=== PATIENT | male | born 1970 | race Caucasian/White ===

== ENCOUNTER 2016-11-16 11:40 | Observation (INO) | payer BC ==
--- NOTE | 2016-11-16 12:10 | DR.H&P ---
H&P - History & Physical for Day of: H&P Date: 11/16/16 - Chief Complaint Chief Complaint: Chest pain, RUQ abd pain - History of Present Illness History of Present Illness: The patient is a 46 year old male who is a patient of my practice who has been being treated for RUQ abdominal pain in the outpatient setting. The patient did have a GB US which showed some thickening of the GB wall. The patient was being set up for a HIDA scan in the outpatient setting. However, the patient began to experience worsening RUQ pain and chest pain today. Subsequently, the patient will be admitted to [facility] for further evaluation and managment. - Past Medical History Past Medical History: GERD, Hypertension - Past Surgical History Surgical History: Ortho Surgery (BACK SURGERY 2012) - Family History Family Medical History: Diabetes Mellitus, Hypertension - Social History Does patient currently use any type of tobacco product: No Have you used tobacco products in the last 12 months: No Type of Tobacco Use: None Does any household member use tobacco: No Alcohol Use: None Drug Use: None - Review of Systems Constitutional: No Symptoms Reported Eyes: No Symptoms Reported ENT: No Symptoms Reported Respiratory: No Symptoms Reported Cardiovascular: Chest Pain, See HPI Gastrointestinal: See HPI, Abdominal Pain Genitourinary: No Symptoms Reported Musculoskeletal: No Symptoms Reported Skin: No Symptoms Reported Neurological: No Symptoms Reported Oriented: Normal Eyes: Normal Ear: Normal Nose: Normal Throat: Normal Respiratory: Clear Throughout Cardiovascular: Normal : Normal Auscultation: Bowel Sounds: Normal Palpation: Other (TTP RUQ) Tenderness: RUQ, Epigastric, Moderate Skin: Normal Musculoskeletal: Normal Psychiatric: Normal Mood Description: Calm Affect: Normal Speech Pattern: Appropriate - Assessment/Plan (1) Chest pain Qualifiers: Chest pain type: C Ischemic chest pain type: I Narrative Support Text: see HPI Status: Acute Plan: CXR. SERIAL EKG. SERICAL CARDIAC ENZYMES (2) RUQ abdominal pain Status: Acute Plan: HIDA SCAN IN AM. PROTONIX 40 IV Q12
[2016-11-16 14:19] LABS: BASOPHILS # (AUTO) 0.1 X10^3/uL (0.0-0.1); BASOPHILS % (AUTO) 0.6 % (0.2-1.0); EOSINOPHILS # (AUTO) 0.1 x10^3/uL (0.0-0.2); EOSINOPHILS % (AUTO) 0.6 % (0.9-2.9); HEMATOCRIT 46.4 % (42.0-54.0); HEMOGLOBIN 16.2 g/dL (13.5-18.0); LYMPHOCYTES # (AUTO) 1.2 X10^3/uL (1.3-2.9); LYMPHOCYTES % (AUTO) 12.6 % (21.0-51.0); MEAN CORPUSCULAR HEMOGLOBIN 28.3 pg (27.0-34.0); MEAN CORPUSCULAR HGB CONC 34.9 g/dL (33.0-35.0); MEAN PLATELET VOLUME 8.6 fL (7.4-11.0); MONOCYTES # (AUTO) 0.4 x10^3/uL (0.3-0.8); MONOCYTES % (AUTO) 4.1 % (0.0-13.0); NEUTROPHILS # (AUTO) 7.9 x10^3/uL (2.2-4.8); NEUTROPHILS % (AUTO) 82.1 % (42.0-75.0); PLATELET COUNT 279 X10^3/uL (150.0-450.0); RED BLOOD COUNT 5.73 X10^6/uL (4.7-6.0); RED CELL DISTRIBUTION WIDTH 13.3 % (11.6-16.5); WHITE BLOOD COUNT 9.6 X10^3/uL (3.6-10.0)
[2016-11-16] MEDS: PROTONIX INJ 40 MG VIAL IVP SCH ×2 (14:39→21:09)
[2016-11-16] MEDS: NS 1000 ML 1,000 ML IV SCH (14:39)
[2016-11-16 14:42] LABS: ALANINE AMINOTRANSFERASE 58 Units/L (12-78); ALBUMIN 3.8 g/dL (3.4-5.0); ALKALINE PHOSPHATASE 80 Units/L (46-116); ASPARTATE AMINO TRANSFERASE 36 Units/L (15-37); BLOOD UREA NITROGEN 11 mg/dL (7-18); CALCIUM 9.1 mg/dL (8.5-10.1); CARBON DIOXIDE 30.5 mmol/L (21-32); CHLORIDE 104 mmol/L (98-107); CKMB % 0.7 % (<4); CREATINE KINASE 362 Units/L (39-308); CREATINE KINASE MB 2.5 ng/mL (0-4.0); CREATININE 1.11 mg/dL (0.70-1.30); GLUCOSE 101 mg/dL (65-99); SODIUM 140 mmol/L (136-145); TOTAL PROTEIN 7.4 g/dL (6.4-8.2); TROPONIN I < 0.02 ng/mL (0-1.5); eGFR BLACK RACES > 60 (>60); eGFR NON BLACK RACES > 60 (>60)
--- NOTE | 2016-11-16 14:42 | RAD ---
HISTORY: Chest pain Study: Portable chest. Comparison: None. Findings: The trachea is midline. The cardiac silhouette is unremarkable. The lungs are clear without focal infiltrate or effusion. The bony thorax is unremarkable. IMPRESSION: 1. No acute cardiopulmonary disease. Reported By:
[2016-11-16 14:49] LABS: CKMB % 0.6 % (<4); CREATINE KINASE 379 Units/L (39-308); CREATINE KINASE MB 2.1 ng/mL (0-4.0); TROPONIN I < 0.02 ng/mL (0-1.5)
[2016-11-16] MEDS: ZESTORETIC 10/ 12.5MG PO SCH (16:16)
[2016-11-16] MEDS ORDERED: PriLOSEC PO SCH (17:00)
[2016-11-16] MEDS: NORCO 5/325 MG TAB PO PRN (18:17)
[2016-11-16 21:14] LABS: CKMB % 0.7 % (<4); CREATINE KINASE 297 Units/L (39-308); TROPONIN I < 0.02 ng/mL (0-1.5)
[2016-11-17 03:26] LABS: CKMB % 0.7 % (<4); CREATINE KINASE 234 Units/L (39-308); CREATINE KINASE MB 1.7 ng/mL (0-4.0); TROPONIN I < 0.02 ng/mL (0-1.5)
[2016-11-17] MEDS: NS 1000 ML 1,000 ML IV SCH ×2 (05:40→14:04)
[2016-11-17] MEDS: PROTONIX INJ 40 MG VIAL IVP SCH ×2 (08:16→20:57)
[2016-11-17] MEDS: ZESTORETIC 10/ 12.5MG PO SCH (08:16)
[2016-11-17 10:25] LABS: BASOPHILS # (AUTO) 0.1 X10^3/uL (0.0-0.1); EOSINOPHILS # (AUTO) 0.1 x10^3/uL (0.0-0.2); EOSINOPHILS % (AUTO) 1.1 % (0.9-2.9); HEMATOCRIT 44.4 % (42.0-54.0); HEMOGLOBIN 15.3 g/dL (13.5-18.0); LYMPHOCYTES # (AUTO) 1.5 X10^3/uL (1.3-2.9); LYMPHOCYTES % (AUTO) 17.9 % (21.0-51.0); MEAN CORPUSCULAR HEMOGLOBIN 28.2 pg (27.0-34.0); MEAN CORPUSCULAR HGB CONC 34.4 g/dL (33.0-35.0); MEAN CORPUSCULAR VOLUME 82.1 fL (80.0-100.0); MONOCYTES # (AUTO) 0.5 x10^3/uL (0.3-0.8); MONOCYTES % (AUTO) 5.5 % (0.0-13.0); NEUTROPHILS # (AUTO) 6.2 x10^3/uL (2.2-4.8); NEUTROPHILS % (AUTO) 74.5 % (42.0-75.0); PLATELET COUNT 221 X10^3/uL (150.0-450.0); RED BLOOD COUNT 5.41 X10^6/uL (4.7-6.0); RED CELL DISTRIBUTION WIDTH 13.3 % (11.6-16.5)
[2016-11-17 10:28] LABS: ALANINE AMINOTRANSFERASE 47 Units/L (12-78); ALKALINE PHOSPHATASE 73 Units/L (46-116); ASPARTATE AMINO TRANSFERASE 40 Units/L (15-37); CARBON DIOXIDE 27.3 mmol/L (21-32); CHLORIDE 105 mmol/L (98-107); SODIUM 140 mmol/L (136-145); TOTAL PROTEIN 6.6 g/dL (6.4-8.2)
[2016-11-17 10:33] LABS: ALBUMIN 2.9 g/dL (3.4-5.0); BLOOD UREA NITROGEN 13 mg/dL (7-18); CALCIUM 8.7 mg/dL (8.5-10.1); COR CA(FOR HYPOALB) 9.6 mg/dL (8.5-10.1); COR NA(FOR HYPERGLY) 141 mmol/L (136-145); CREATININE 1.14 mg/dL (0.70-1.30); GLUCOSE 126 mg/dL (65-99); eGFR BLACK RACES > 60 (>60); eGFR NON BLACK RACES > 60 (>60)
[2016-11-17] MEDS: NORCO 5/325 MG TAB PO PRN ×2 (10:38→22:57)
[2016-11-17 10:43] LABS: WHITE BLOOD COUNT 8.7 X10^3/uL (3.6-10.0)
[2016-11-17 10:44] LABS: PLATELET MORPHOLOGY COMMENT NORMAL (NORMAL)
--- NOTE | 2016-11-17 13:21 | NM ---
HISTORY: Right upper quadrant pain. Study: Nuclear medicine HIDA scan with ejection fraction Comparison: None. Technique: Multiple scintigraphic images of the abdomen were obtained the intravenous administration of 5.3 mCi of technetium labeled Choletec. Following distention of the gallbladder with radiotracer, 8 oz of Ensure was administered orally. A n estimated gallbladder ejection fraction was calculated based on the resulting physiologic response . Findings: Homogeneous uptake of radiotracer is seen throughout the liver. The intrabiliary ductal system is o bserved normally. The common hepatic and common bile duct are unremarkable with normal biliary-bernice l transit. The gallbladder is observed to fill normally. After the oral administration of Ensure, a gallbladder ejection fraction of 34.2% (normal > 35%) is observed. IMPRESSION: 1. Normal hepatobiliary imaging scan. 2. Abnormal gallbladder ejection fraction of 34.2%. Clinical correlation for cholecystitis or gallb ladder dyskinesia is recommended. Reported By:
[2016-11-17] MEDS ORDERED: D5 LR 1000 ML 1,000 ML IV ONE (17:05)
[2016-11-17] MEDS ORDERED: DIPRIVAN VIAL 20 ML ONE (17:30)
--- NOTE | 2016-11-17 18:23 | PCM.PROG ---
Progress Note - Progress Note for Day of Date: 11/17/16 - Subjective Subjective: epigatric pain, nausea. pt NPO for gallbladder studies and EGD per Dr Lopez this afternoon - Past Medical Family Social History Past Med/Fam/Surg Hx: No changes since H&P Allergies: Allergies No Known Drug Allergy Allergy (Verified 11/16/16 14:13) - Review of Systems ROS: No change since H&P - Vital Signs and I&O's Vital Signs: Temperature 98.0 F Pulse Rate [Left Radial] 80 Pulse Rate 71 Respiratory Rate 20 Blood Pressure [Right Arm] 128/78 Blood Pressure [Left Arm] 139/95 Blood Pressure 151/92 O2 Sat by Pulse Oximetry 96 Intake and Output: Intake & Output 11/15/16 11/16/16 11/17/16 11/18/16 11:59 11:59 11:59 11:59 Intake Total 1437 840 Output Total 2 4 Balance 1435 836 - Physical Exam Oriented: Normal Eyes: Normal Ear: Normal Nose: Normal Throat: Normal Cardiovascular: Normal : Normal Auscultation: Bowel Sounds: Normal Tenderness: RUQ, Epigastric, Moderate Skin: Normal Musculoskeletal: Normal Psychiatric: Normal Mood Description: Calm Affect: Normal Speech Pattern: Clear, Appropriate - Laboratory and Diagnostics Result Diagrams: 11/17/16 09:45 11/17/16 09:45 Labs: 11/16/16 18:13 Urine,Clean Catch Urine Culture - Preliminary Laboratory WBC 8.7 X10^3/uL (3.6-10.0) 11/17/16 09:45 RBC 5.41 X10^6/uL (4.7-6.0) 11/17/16 09:45 Hgb 15.3 g/dL (13.5-18.0) 11/17/16 09:45 Hct 44.4 % (42.0-54.0) 11/17/16 09:45 MCV 82.1 fL (80.0-100.0) 11/17/16 09:45 MCH 28.2 pg (27.0-34.0) 11/17/16 09:45 MCHC 34.4 g/dL (33.0-35.0) 11/17/16 09:45 RDW 13.3 % (11.6-16.5) 11/17/16 09:45 Plt Count 221 X10^3/uL (150.0-450.0) 11/17/16 09:45 Plt Count Comment Adequate (ADEQUATE) 11/17/16 09:45 MPV 9.0 fL (7.4-11.0) 11/17/16 09:45 Neut % 74.5 % (42.0-75.0) 11/17/16 09:45 Lymph % 17.9 % (21.0-51.0) L 11/17/16 09:45 [place] % 5.5 % (0.0-13.0) 11/17/16 09:45 Eos % 1.1 % (0.9-2.9) 11/17/16 09:45 Baso % 1.0 % (0.2-1.0) 11/17/16 09:45 Neut # 6.2 x10^3/uL (2.2-4.8) H 11/17/16 09:45 Lymph # 1.5 X10^3/uL (1.3-2.9) 11/17/16 09:45 [place] # 0.5 x10^3/uL (0.3-0.8) 11/17/16 09:45 Eos # 0.1 x10^3/uL (0.0-0.2) 11/17/16 09:45 Baso # 0.1 X10^3/uL (0.0-0.1) 11/17/16 09:45 Absolute Nucleated RBC 0.3 /100WBC 11/17/16 09:45 Plt Clumps, EDTA 11/17/16 09:45 Plt Morphology Comment Normal (NORMAL) 11/17/16 09:45 RBC Morphology Normal (NORMAL) 11/17/16 09:45 Sodium 140 mmol/L (136-145) 11/17/16 09:45 Corrected Sodium 141 mmol/L (136-145) 11/17/16 09:45 Potassium 4.1 mmol/L (3.5-5.1) 11/17/16 09:45 Chloride 105 mmol/L (98-107) 11/17/16 09:45 Carbon Dioxide 27.3 mmol/L (21-32) 11/17/16 09:45 BUN 13 mg/dL (7-18) 11/17/16 09:45 Creatinine 1.14 mg/dL (0.70-1.30) 11/17/16 09:45 Est GFR (MDRD) Af Amer > 60 (>60) 11/17/16 09:45 Est GFR (MDRD) Non-Af > 60 (>60) 11/17/16 09:45 Glucose 126 mg/dL (65-99) H 11/17/16 09:45 Calcium 8.7 mg/dL (8.5-10.1) 11/17/16 09:45 Corrected Calcium 9.6 mg/dL (8.5-10.1) 11/17/16 09:45 Total Bilirubin 0.60 mg/dL (0.2-1.0) 11/17/16 09:45 AST 40 Units/L (15-37) H 11/17/16 09:45 ALT 47 Units/L (12-78) 11/17/16 09:45 Alkaline Phosphatase 73 Units/L (46-116) 11/17/16 09:45 Creatine Kinase 234 Units/L (39-308) 11/17/16 02:25 CK-MB (CK-2) 1.7 ng/mL (0-4.0) 11/17/16 02:25 CK/CKMB % Calc 0.7 % (<4) 11/17/16 02:25 Troponin I < 0.02 ng/mL (0-1.5) 11/17/16 02:25 Total Protein 6.6 g/dL (6.4-8.2) 11/17/16 09:45 Albumin 2.9 g/dL (3.4-5.0) L 11/17/16 09:45 Globulin 3.7 g/dL (2.5-4.5) 11/17/16 09:45 Albumin/Globulin Ratio 0.8 Ratio (1.1-2.1) L 11/17/16 09:45 - Plan (1) Chest pain Status: Acute Qualifiers: Chest pain type: C Ischemic chest pain type: I Plan: CXR. SERIAL EKG. SERICAL CARDIAC ENZYMES, stable continue with GI work up as cause for CP (2) RUQ abdominal pain Status: Acute Plan: HIDA SCAN, EGD. PROTONIX 40 IV Q12
[2016-11-18] MEDS: NS 1000 ML 1,000 ML IV SCH (07:11)
[2016-11-18] MEDS ORDERED: ANCEF VIAL 1 GM ONE (07:32)
[2016-11-18] MEDS ORDERED: NS 50 ML IV + SPIKE MINIBAG* 100 ML IV ONE (07:32)
[2016-11-18] MEDS ORDERED: LR 1000 ML IV 1,000 ML IV ONE (07:32)
[2016-11-18] MEDS ORDERED: XYLOCAINE 1 % (PLAIN) ONE (07:47)
[2016-11-18] MEDS ORDERED: MARCAINE 0.25% WITH EPI IJ ONE (07:47)
[2016-11-18] MEDS: PROTONIX INJ 40 MG VIAL IVP SCH ×2 (08:00→21:31)
[2016-11-18] MEDS: ZESTORETIC 10/ 12.5MG PO SCH (08:01)
[2016-11-18] MEDS ORDERED: FENTANYL INJ 100 mcg ONE (08:32)
[2016-11-18] MEDS ORDERED: DILAUDID INJ ONE (08:32)
[2016-11-18] MEDS ORDERED: NS IRRIGATION 3000 ML 3,000 ML IR ONE (09:26)
[2016-11-18] MEDS ORDERED: TYLENOL 325 MG TAB PO PRN (11:10)
[2016-11-18] MEDS ORDERED: ZOFRAN INJ 4 MG VIAL IVP PRN ×2 (11:10→11:15)
[2016-11-18] MEDS ORDERED: REGLAN INJ 10 MG VIAL IVP PRN (11:15)
[2016-11-18] MEDS ORDERED: DILAUDID INJ IVP PRN (11:15)
[2016-11-18] MEDS ORDERED: BENADRYL INJ 50 MG VIAL IVP PRN (11:15)
[2016-11-18] MEDS ORDERED: PHENERGAN INJ 25 MG IVP PRN (11:15)
--- NOTE | 2016-11-18 13:32 | PCM.PROG ---
Progress Note - Progress Note for Day of Date: 11/18/16 - Subjective Subjective: epigatric pain, nausea. pt had hida one day ago and egd, pt. pt NPO for gallbladder surgery this am for lap mackenzie per dr gay - Past Medical Family Social History Past Med/Fam/Surg Hx: No changes since H&P Allergies: Allergies No Known Drug Allergy Allergy (Verified 11/16/16 14:13) - Review of Systems ROS: No change since H&P - Vital Signs and I&O's Vital Signs: Temperature 97.9 F Pulse Rate [Left Radial] 98 Pulse Rate 89 Respiratory Rate 18 Blood Pressure [Right Arm] 128/78 Blood Pressure [Left Arm] 140/76 Blood Pressure 118/63 O2 Sat by Pulse Oximetry 96 Intake and Output: Intake & Output 11/16/16 11/17/16 11/18/16 11/19/16 11:59 11:59 11:59 11:59 Intake Total 1437 1722 Output Total 2 1004 Balance 1435 718 - Physical Exam Oriented: Normal Eyes: Normal Ear: Normal Nose: Normal Throat: Normal Cardiovascular: Normal : Normal Auscultation: Bowel Sounds: Normal Tenderness: RUQ, Epigastric, Moderate Skin: Normal Musculoskeletal: Normal Psychiatric: Normal Mood Description: Calm Affect: Normal Speech Pattern: Clear, Appropriate - Laboratory and Diagnostics Result Diagrams: 11/17/16 09:45 11/17/16 09:45 Labs: 11/16/16 18:13 Urine,Clean Catch Urine Culture - Final Laboratory WBC 8.7 X10^3/uL (3.6-10.0) 11/17/16 09:45 RBC 5.41 X10^6/uL (4.7-6.0) 11/17/16 09:45 Hgb 15.3 g/dL (13.5-18.0) 11/17/16 09:45 Hct 44.4 % (42.0-54.0) 11/17/16 09:45 MCV 82.1 fL (80.0-100.0) 11/17/16 09:45 MCH 28.2 pg (27.0-34.0) 11/17/16 09:45 MCHC 34.4 g/dL (33.0-35.0) 11/17/16 09:45 RDW 13.3 % (11.6-16.5) 11/17/16 09:45 Plt Count 221 X10^3/uL (150.0-450.0) 11/17/16 09:45 Plt Count Comment Adequate (ADEQUATE) 11/17/16 09:45 MPV 9.0 fL (7.4-11.0) 11/17/16 09:45 Neut % 74.5 % (42.0-75.0) 11/17/16 09:45 Lymph % 17.9 % (21.0-51.0) L 11/17/16 09:45 [place] % 5.5 % (0.0-13.0) 11/17/16 09:45 Eos % 1.1 % (0.9-2.9) 11/17/16 09:45 Baso % 1.0 % (0.2-1.0) 11/17/16 09:45 Neut # 6.2 x10^3/uL (2.2-4.8) H 11/17/16 09:45 Lymph # 1.5 X10^3/uL (1.3-2.9) 11/17/16 09:45 [place] # 0.5 x10^3/uL (0.3-0.8) 11/17/16 09:45 Eos # 0.1 x10^3/uL (0.0-0.2) 11/17/16 09:45 Baso # 0.1 X10^3/uL (0.0-0.1) 11/17/16 09:45 Absolute Nucleated RBC 0.3 /100WBC 11/17/16 09:45 Plt Clumps, EDTA 11/17/16 09:45 Plt Morphology Comment Normal (NORMAL) 11/17/16 09:45 RBC Morphology Normal (NORMAL) 11/17/16 09:45 Sodium 140 mmol/L (136-145) 11/17/16 09:45 Corrected Sodium 141 mmol/L (136-145) 11/17/16 09:45 Potassium 4.1 mmol/L (3.5-5.1) 11/17/16 09:45 Chloride 105 mmol/L (98-107) 11/17/16 09:45 Carbon Dioxide 27.3 mmol/L (21-32) 11/17/16 09:45 BUN 13 mg/dL (7-18) 11/17/16 09:45 Creatinine 1.14 mg/dL (0.70-1.30) 11/17/16 09:45 Est GFR (MDRD) Af Amer > 60 (>60) 11/17/16 09:45 Est GFR (MDRD) Non-Af > 60 (>60) 11/17/16 09:45 Glucose 126 mg/dL (65-99) H 11/17/16 09:45 Calcium 8.7 mg/dL (8.5-10.1) 11/17/16 09:45 Corrected Calcium 9.6 mg/dL (8.5-10.1) 11/17/16 09:45 Total Bilirubin 0.60 mg/dL (0.2-1.0) 11/17/16 09:45 AST 40 Units/L (15-37) H 11/17/16 09:45 ALT 47 Units/L (12-78) 11/17/16 09:45 Alkaline Phosphatase 73 Units/L (46-116) 11/17/16 09:45 Creatine Kinase 234 Units/L (39-308) 11/17/16 02:25 CK-MB (CK-2) 1.7 ng/mL (0-4.0) 11/17/16 02:25 CK/CKMB % Calc 0.7 % (<4) 11/17/16 02:25 Troponin I < 0.02 ng/mL (0-1.5) 11/17/16 02:25 Total Protein 6.6 g/dL (6.4-8.2) 11/17/16 09:45 Albumin 2.9 g/dL (3.4-5.0) L 11/17/16 09:45 Globulin 3.7 g/dL (2.5-4.5) 11/17/16 09:45 Albumin/Globulin Ratio 0.8 Ratio (1.1-2.1) L 11/17/16 09:45 Tissue Pathology To follow 11/18/16 11:04 - Plan (1) Biliary dyskinesia Status: Acute Plan: NPO, LAP MACKENZIE THIS AM PER JOSE ALEJANDRO DUNN D/C HOME POST OPERATIVE IF STABLE PER SURGEON (2) Chest pain Status: Acute Qualifiers: Chest pain type: C Ischemic chest pain type: I Plan: CXR. SERIAL EKG&. SERICAL CARDIAC ENZYMES, continue with GI treatment (3) RUQ abdominal pain Status: Acute Plan: HIDA SCAN, EGD. PROTONIX 40 IV Q12
[2016-11-18] MEDS ORDERED: ULTANE GAS IN ONE (15:03)
[2016-11-18] MEDS ORDERED: DYLOJECT INJ ONE (15:03)
[2016-11-18] MEDS ORDERED: NEOSTIGMINE INJ ONE (15:03)
[2016-11-18] MEDS ORDERED: ROBINUL ONE (15:03)
[2016-11-18] MEDS ORDERED: NORCURON INJ 10 MG VIAL ONE (15:03)
[2016-11-18] MEDS ORDERED: VERSED ONE (15:03)
[2016-11-18] MEDS ORDERED: DIPRIVAN VIAL ONE (15:03)
[2016-11-18] MEDS ORDERED: ZOFRAN INJ 4 MG VIAL ONE (15:03)
[2016-11-18] MEDS ORDERED: QUELICIN (OR ANECTINE) ONE (15:03)
[2016-11-18] MEDS: MORPHINE SULFATE INJ 2 MG IVP PRN ×2 (15:51→19:36)
[2016-11-18] MEDS ORDERED: EPHEDRINE SULFATE INJ ONE (15:58)
[2016-11-18] MEDS: HEPARIN SODIUM INJ 5000 UNITS SC SCH (18:04)
[2016-11-18] MEDS: PERCOCET TAB 5/325 MG PO PRN ×2 (18:04→22:55)
[2016-11-19] MEDS: HEPARIN SODIUM INJ 5000 UNITS SC SCH ×2 (02:21→11:21)
[2016-11-19 06:19] LABS: BASOPHILS # (AUTO) 0.1 X10^3/uL (0.0-0.1); BASOPHILS % (AUTO) 0.5 % (0.2-1.0); EOSINOPHILS % (AUTO) 0.3 % (0.9-2.9); HEMATOCRIT 43.3 % (42.0-54.0); HEMOGLOBIN 15.1 g/dL (13.5-18.0); LYMPHOCYTES # (AUTO) 0.9 X10^3/uL (1.3-2.9); LYMPHOCYTES % (AUTO) 7.9 % (21.0-51.0); MEAN CORPUSCULAR HEMOGLOBIN 28.4 pg (27.0-34.0); MEAN CORPUSCULAR HGB CONC 34.8 g/dL (33.0-35.0); MEAN CORPUSCULAR VOLUME 81.7 fL (80.0-100.0); MEAN PLATELET VOLUME 8.8 fL (7.4-11.0); MONOCYTES # (AUTO) 0.7 x10^3/uL (0.3-0.8); MONOCYTES % (AUTO) 6.5 % (0.0-13.0); NEUTROPHILS # (AUTO) 9.7 x10^3/uL (2.2-4.8); NEUTROPHILS % (AUTO) 84.8 % (42.0-75.0); PLATELET COUNT 228 X10^3/uL (150.0-450.0); RED BLOOD COUNT 5.31 X10^6/uL (4.7-6.0); WHITE BLOOD COUNT 11.4 X10^3/uL (3.6-10.0)
[2016-11-19] MEDS ORDERED: PROTONIX TAB 40 MG PO SCH ×2 (09:00→10:00)
[2016-11-19] MEDS: PROTONIX INJ 40 MG VIAL IVP SCH (09:27)
[2016-11-19] MEDS: ZESTORETIC 10/ 12.5MG PO SCH (09:27)
[2016-11-19] MEDS ORDERED: MILK OF MAGNESIA PO PRN (10:44)
[2016-11-19] MEDS ORDERED: TORADOL 30 MG VIAL IVP PRN (10:44)
[2016-11-19 11:47] VITALS: BP 144/80
== END 2016-11-19 16:10 | disposition home or self-care (01) ==
LOC: MED/SURG 11:40
PROVIDERS: ADMIT Internal Medicine; ATTEND Internal Medicine
PROC: 0DJ08ZZ Inspection of Upper Intestinal Tract, Via Natural or Artificial Opening Endoscopic (ICD-10-PCS; 2016-11-17)
PROC: 0DTJ4ZZ Resection of Appendix, Percutaneous Endoscopic Approach (ICD-10-PCS; principal; 2016-11-18 08:00)
PROC: 0FT44ZZ Resection of Gallbladder, Percutaneous Endoscopic Approach (ICD-10-PCS; 2016-11-18 08:00)
DX: K82.8 Other specified diseases of gallbladder (principal); K36 Other appendicitis; I10 Essential (primary) hypertension; K21.9 Gastro-esophageal reflux disease without esophagitis; R10.13 Epigastric pain; R07.89 Other chest pain; K29.60 Other gastritis without bleeding; K44.9 Diaphragmatic hernia without obstruction or gangrene
CPT/HCPCS: 36415; 71010; 78227; 80053; 82550; 82553; 84484; 85025; 85610; 85730; 87086; 93005; 93010; 94760; A4216; A4222; C9113; S0020; A4217; G0378; J0330; J0690; J1170; J1644; J1885; J2001; J2250; J2270; J2405; J2710; J3010; J3490; J7120